=== PATIENT | male | born 1955 | race Caucasian/White ===

== ENCOUNTER → 2017-02-12 | Outpatient (CLI) | payer BC ==
[~2017-02-12] MED LIST: OXYC-57 PO
--- NOTE | 2017-02-12 12:26 | DIAGNOSTIC IMAGING REPORT ---
CT LUNG SCREENING, LOW DOSE WITH COMPUTER-AIDED DETECTION (CAD) CLINICAL HISTORY: 61 years-old Male presents for a screening examination. COMPARISON STUDY: CT abdomen 01/21/2010 CT DOSE: 78.24 mGycm TECHNIQUE: Low-dose helical CT was acquired without intravenous contrast from lung apices to bases and reconstructed at 2.5 mm every 2 mm. CAD was utilized for this study. A dose lowering technique was utilized adhering to the principles of ALARA. FINDINGS: No definite thyroid nodule or pathologic adenopathy identified. The heart is mildly enlarged with coronary arterial calcifications noted. No aortic aneurysm identified. The unopacified pulmonary arterial tree is unremarkable. Mild to moderate upper lobe predominant centrilobular and paraseptal emphysematous changes are noted without pneumothorax or pleural effusion. Mild dependent subsegmental bibasilar atelectasis. Ground glass opacity of the anterior segment right upper lobe subpleural distribution seen on image 61 series 4 suggests area of scarring. No suspicious pulmonary nodules or masses identified. No lobar airspace consolidation. Central airways are patent. No endobronchial mass lesions identified. No acute process seen within the imaged upper abdomen. Soft tissues are unremarkable. Bones appear intact. No suspicious bone lesions are identified. IMPRESSION: 1. No acute intrathoracic abnormality identified. No suspicious pulmonary nodules. 2. Mild to moderate centrilobular and paraseptal emphysema. CAD FINDINGS: Overall Lung RADS Category: 1 Lung RADS Management Recommendation: Continue annual lung cancer screening. Lung RADS Follow Up Date: 2018-02-12 The above report was generated using voice recognition software. It may contain grammatical, syntax or spelling errors. Electronically signed by: Elias Dutta M.D. 02/12/2017 12:24 PM Dictated Date/Time: 02/12/2017 12:13 PM
== END | disposition home or self-care (01) ==
LOC: C.CTS 11:24
PROVIDERS: ATTEND Family Medicine
DX: Z12.2 Encounter for screening for malignant neoplasm of respiratory organs (principal); J43.2 Centrilobular emphysema

== ENCOUNTER → 2017-04-22 | Outpatient (CLI) | payer OTHER ==
--- NOTE | 2017-04-22 08:16 | DIAGNOSTIC IMAGING REPORT ---
ABDOMEN LIMITED (US) HISTORY: 61 years-old Male HEP C hepatitis C. COMPARISON: CT abdomen 01/21/2010 TECHNIQUE: Multiple real-time sonographic images of the abdominal right upper quadrant were obtained assessing grayscale appearance and color flow FINDINGS: The pancreas is partially obscured by bowel gas and not well seen. There is an ovoid 2.2 x 0.8 cm structure noted near the pancreatic head adjacent to the portal splenic confluence suggesting normal sized periportal lymph node. Prior cholecystectomy. Common bile duct is normal, 4 mm. The liver is within normal limits without focal mass or intrahepatic biliary ductal dilation. No marginal nodularity to suggest cirrhosis. No ascites. Cyst of the superior pole right kidney measures 3.1 cm. Mild pelviectasis of the right kidney is likely physiologic and appears unchanged without betina hydronephrosis identified. IMPRESSION: 1. Prior cholecystectomy. No biliary ductal dilation. 3. Unremarkable sonographic appearance of the liver. 3. Ovoid slightly hypoechoic structure adjacent to the pancreatic head and portal splenic confluence suggest periportal lymph node. The above report was generated using voice recognition software. It may contain grammatical, syntax or spelling errors. Electronically signed by: Elias Dutta M.D. 04/22/2017 8:15 AM Dictated Date/Time: 04/22/2017 8:10 AM
== END | disposition home or self-care (01) ==
LOC: C.ULTR 07:37
PROVIDERS: ATTEND Internal Medicine Gastroenterology
DX: B19.20 Unspecified viral hepatitis C without hepatic coma (principal)

== ENCOUNTER 2017-07-11 16:49 | Emergency (ER) | payer OTHER ==
[~2017-07-11] VITALS: Ht 193 cm; Wt 98.0 kg
[2017-07-11 16:55] VITALS: TEMP 37.3; Ht 193 cm; Wt 98.0 kg
[2017-07-11] MEDS ORDERED: OXYCODONE/ACETAMINOPHEN 5-325 TAB PO STA (17:12)
--- NOTE | 2017-07-11 17:28 | EMERGENCY ROOM VISIT NOTE ---
ED Visit Note First contact with patient: 17:00 CHIEF COMPLAINT: Left knee pain, fall HISTORY OF PRESENT ILLNESS: This 61-year-old male patient presents to the emergency department, ambulatory, approximately 10 hours after sustaining an injury to the left knee when he fell while doing yard work. The patient states he slipped, landing directly on the left knee. He states he had difficulty getting up. He was able to "hobble" back to the house, and since then has taken Aleve, use ice, and elevated the extremity without significant improvement in his symptoms. The patient denies any other injuries besides their knee. The patient does report significant swelling with bruising. There is pain worse on the lateral aspect, but also of the kneecap. They rate the pain as sharp and 10/10. The patient states they are not able to walk on it. No numbness or tingling. Patient does have a history of previous knee injury with surgery approximately 12 years ago. No ankle, foot or hip pain. REVIEW OF SYSTEMS: A 6 system review of systems was completed with positives and pertinent negatives listed in the HPI. ALLERGIES: None MEDICATIONS: None PMH: None SOCIAL HISTORY: The patient lives locally with family. He denies drug, alcohol , tobacco use. PHYSICAL EXAM: Vital Signs: Reviewed Nurse's notes, vital signs stable. GENERAL : This is a 61-year-old white male, no acute distress, but appears in pain, well -developed, well-nourished. MENTAL STATUS: Alert, oriented to person place and time, and cooperative. MUSCULOSKELETAL: The left knee is moderately swollen. There is ecchymosis. There is joint effusion present. The patient is tender over the patella and of the lateral and medial aspects. There is joint line tenderness. The patella does subluxate, but the patient is experiencing a significant amount of tenderness with this movement. Range of motion is limited due to pain. Strength of the quads and hamstrings is 4/5. Darrius's is negative. Magui's and Anterior Drawer tests are negative. There is discomfort , but no laxity with varus and valgus stressing. The foot and toes are warm and well-perfused. Dorsalis pedis pulse 2+. Sensation to pain and light touch is intact. Capillary refill less than 2 seconds. RADIOLOGY: LEFT KNEE 3 VIEWS HISTORY: left knee pain, lateral>medial, fall COMPARISON: None. FINDINGS: Moderate joint effusion. Transverse lucency and irregularity at the mid patella consistent within age-indeterminate fracture. There is also mild deformity within the lateral tibial plateau which may be due to an old injury or chronic remodeling from the long-standing degenerative change. Chondrocalcinosis in multiple scattered intra-articular loose body seen within the left knee. Large marginal osteophytes seen within the left knee. Cartilage spaces are maintained. There appears to be normal, healed fracture of the distal femur. No radiopaque foreign bodies. IMPRESSION: 1. Transverse lucency within the mid patella consistent within age-indeterminate fracture. Correlation for point tenderness to assess for an acute injury. 2. Old posttraumatic changes within the distal femur. 3. Moderate joint effusion. 4. Chondrocalcinosis and degenerative changes as described above. Electronically signed by: Campbell Jean Baptiste M.D. 07/11/2017 5:37 PM Dictated Date/Time: 07/11/2017 5:[address] DOSE: 185.55 mGy.cm HISTORY: left patella fracture TECHNIQUE: Multiaxial CT images of the left knee were performed and reformatted in the sagittal and coronal plane without the use of contrast. A dose lowering technique was utilized adhering to the principles of ALARA. COMPARISON: Left knee 07/11/2017. FINDINGS: Comminuted fracture within the mid patella. This demonstrates up to 5 mm of distraction. There is an old, healed fracture within the distal femur. The bones are osteopenic. Chondrocalcinosis, degenerative changes, multiple intra-articular loose bodies are again noted. Moderate joint effusion. IMPRESSION: 1. Comminuted slightly distracted acute patellar fracture. 2. Old, healed distal femur fracture. 3. Moderate joint effusion. 4. Chondrocalcinosis. 5. 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 Electronically signed by: Campbell Jean Baptiste M.D. 07/11/2017 7:05 PM Dictated Date/Time: 07/11/2017 6:59 PM EMERGENCY DEPARTMENT COURSE: I examined the patient. The patient was given 1 dose of Percocet while here in the emergency department. X-rays of the left knee were reviewed by myself and read by radiology and reveal a probable acute fracture of the mid patella. I did consult with orthopedics, spoke with Dr. Emmanuel. He did request a CT scan, and was agreeable with placing the patient in a knee immobilizer and making him nonweightbearing. CT scan performed and reviewed by myself and radiologist as above. The patient was placed in a knee immobilizer under my direction and the position was satisfactory. The patient was instructed on the use of crutches. Patient was provided with a home pack for Percocet. Discharge instructions reviewed. The patient was discharged home in good condition. I attest that I have personally reviewed the patient's current medication list. Blood Pressure Screening: Patient was found to have a slightly elevated blood pressure due to circumstances. I do not believe that the patient requires hypertension monitoring. Etiologies such as soft tissue injury, fracture, dislocation, neurovascular compromise, compartment syndrome, as well as others were entertained. DIAGNOSIS: Left patellar fracture, fall The chart was completed utilizing [employer] Speech voice recognition software. Grammatical errors, random word insertions, pronoun errors, and incomplete sentences are an occasional consequence of this system due to software limitations, ambient noise, and hardware issues. Any formal questions or concerns about the content, text, or information contained within the body of this dictation should be directly addressed to the provider for clarification. Current/Historical Medications Scheduled PRN Oxycodone/Acetaminophen 5MG/325MG (Percocet 5MG/325MG), 1-2 TABS PO Q4 PRN for Pain Allergies Coded Allergies: No Known Allergies (Verified , 04/06/02) Uncoded Allergies: N (Allergy, Unknown, 04/06/02) NKDA' (Allergy, Unknown, 04/06/02) Vital Signs Date Time Temp Pulse Resp B/P (MAP) Pulse Ox O2 Delivery O2 Flow Rate FiO2 07/11/17 16:55 37.3 76 18 169/92 97 Room Air Medications Administered Medications (Trade) Dose Ordered Sig/Louisa Route Start Time Stop Time Status Last Admin Dose Admin Oxycodone/ Acetaminophen (Percocet 5-325mg Tab) 1 tab NOW STAT PO 07/11/17 17:12 07/11/17 17:14 DC 07/11/17 17:20 1 TAB Oxycodone/ Acetaminophen (Percocet 5/ 325MG Home Pack) 1 homepack UD STAT PO 07/11/17 18:28 07/11/17 18:30 DC 07/11/17 19:17 1 HOMEPACK Departure Information Impression Primary Impression: Left patella fracture Additional Impression: Fall Dispostion Home / Self-Care Condition GOOD Prescriptions Oxycodone/Acetaminophen 5MG/325MG (PERCOCET 5MG/325MG) Tab 1-2 TABS PO Q4 Y for Pain, #15 TAB For Initial Treatment Prov: Roxi García PA-C 07/11/17 Referrals Ramses Kerr M.D. (PCP) Andrey Emmanuel M.D. Patient Instructions ED Fx Patella, My [facility] Additional Instructions He was seen in the emergency department today for a left patellar fracture DO NOT drive, drink alcohol, operate machinery, or perform dangerous activities today. You were given medications in the ER that can affect your ability to safely function or operate a vehicle. Percocet 5/325mg: Take 1-2 pills every four hours as needed for breakthrough pain. Avoid alcohol, operating machinery or dangerous equipment, working on ladders or roofs, DRIVING, or situations where being under the influence may be dangerous. It is recommended to use an vjen-zkf-qpjuhye stool softener such as Colace, 100mg twice daily while taking this medication to avoid constipation. Ibuprofen(Motrin, Advil) may be used for fever or pain. Use 600mg every six hours as needed. Take with food. Avoid using more than 2400mg in a 24 hour period. Do not use 2400mg per day for more than three consecutive days without physician direction. Prolonged inappropriate use can lead to stomach upset or ulcers. (AND/OR) Acetaminophen(Tylenol) may be used for fever or pain. Use 650-1000mg every six hours as needed. Avoid using more than 3000mg in a 24 hour period. Ice compresses for 20 minutes at a time four times daily for 2-3 days. Use the crutches as instructed. Avoid all weightbearing until directed otherwise by orthopedics. Rest and elevate your injury. Use the knee immobilizer to keep from flexing the knee until directed otherwise by orthopedics. Return to the ER immediately for any numbness, tingling, severe pain, extreme swelling in the extremity or as needed. Call [facility], [phone], first thing tomorrow morning to arrange follow up for your injury. Follow-up with your primary care physician in 2 to 3 days for a recheck of your current condition. Problem Qualifiers Primary Impression: Left patella fracture Encounter type: initial encounter Fracture type: closed Fracture morphology : transverse Fracture alignment: nondisplaced Qualified Codes: S82.035A - Nondisplaced transverse fracture of left patella, initial encounter for closed fracture Additional Impression: Fall Encounter type: initial encounter Qualified Codes: W19.XXXA - Unspecified fall, initial encounter
--- NOTE | 2017-07-11 17:38 | DIAGNOSTIC IMAGING REPORT ---
LEFT KNEE 3 VIEWS HISTORY: left knee pain, lateral>medial, fall COMPARISON: None. FINDINGS: Moderate joint effusion. Transverse lucency and irregularity at the mid patella consistent within age-indeterminate fracture. There is also mild deformity within the lateral tibial plateau which may be due to an old injury or chronic remodeling from the long-standing degenerative change. Chondrocalcinosis in multiple scattered intra-articular loose body seen within the left knee. Large marginal osteophytes seen within the left knee. Cartilage spaces are maintained. There appears to be normal, healed fracture of the distal femur. No radiopaque foreign bodies. IMPRESSION: 1. Transverse lucency within the mid patella consistent within age-indeterminate fracture. Correlation for point tenderness to assess for an acute injury. 2. Old posttraumatic changes within the distal femur. 3. Moderate joint effusion. 4. Chondrocalcinosis and degenerative changes as described above. Electronically signed by: Campbell Jean Baptiste M.D. 07/11/2017 5:37 PM Dictated Date/Time: 07/11/2017 5:33 PM
[2017-07-11] MEDS ORDERED: OXYC-57 PO (18:27)
[2017-07-11] MEDS ORDERED: PERCOCET HOME PACK PO STA (18:28)
--- NOTE | 2017-07-11 19:07 | DIAGNOSTIC IMAGING REPORT ---
LEFT KNEE CT CT DOSE: 185.55 mGy.cm HISTORY: left patella fracture TECHNIQUE: Multiaxial CT images of the left knee were performed and reformatted in the sagittal and coronal plane without the use of contrast. A dose lowering technique was utilized adhering to the principles of ALARA. COMPARISON: Left knee 07/11/2017. FINDINGS: Comminuted fracture within the mid patella. This demonstrates up to 5 mm of distraction. There is an old, healed fracture within the distal femur. The bones are osteopenic. Chondrocalcinosis, degenerative changes, multiple intra-articular loose bodies are again noted. Moderate joint effusion. IMPRESSION: 1. Comminuted slightly distracted acute patellar fracture. 2. Old, healed distal femur fracture. 3. Moderate joint effusion. 4. Chondrocalcinosis. 5. 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 Electronically signed by: Campbell Jean Baptiste M.D. 07/11/2017 7:05 PM Dictated Date/Time: 07/11/2017 6:59 PM
[2017-07-11 19:23] VITALS: BP 171/106; PULSE 74; O2SAT 94
== END 2017-07-11 19:25 | disposition home or self-care (01) ==
LOC: C.EDB 16:50 → C.EDD 19:25
DX: S82.035A Nondisplaced transverse fracture of left patella, initial encounter for closed fracture (principal); W01.0XXA Fall on same level from slipping, tripping and stumbling without subsequent striking against object, initial encounter; Y93.H9 Activity, other involving exterior property and land maintenance, building and construction

== ENCOUNTER 2021-12-03 06:32 | Observation (INO) ==
--- NOTE | 2021-11-10 14:56 | PAT Medication Instructions ---
Medication Instructions Date of Service November 10, 2021 Home Medications Uric Acid Support 1 dose PO QAM glucosamine-chondroitin 500 mg-400 mg capsule 1 cap PO QAM ticdsqbkpchy-jeiumkci-yxpeme tablet 1 tab PO QAM turmeric 400 mg capsule 400 mg PO QAM STOP taking 2 weeks before surgery Uric Acid Support 1 dose PO QAM glucosamine-chondroitin 500 mg-400 mg capsule 1 cap PO QAM ghzpzlklqteh-mbmekkmv-kjcsfc tablet 1 tab PO QAM turmeric 400 mg capsule 400 mg PO QAM Other Notes NOTHING TO EAT OR DRINK AFTER MIDNIGHT. If you have any questions please call us at [phone] or [phone] or [phone] or [phone]
--- NOTE | 2021-11-17 11:35 | Anesthesiology Consultation ---
Date of Service November 17, 2021 Assessment & Plan (1) Encounter for pre-operative examination: Outpatient joint assessment: Patient is currently scheduled for inpatient pathway. If re-evaluated pending system levels during current pandemic/surgeon requests outpatient pathway, patient is acceptable candidate for outpatient joint program from anesthesia standpoint pending perioperative course and surgeon's office assessment of pt motivation/support/completion of same day joint program preop requirements. Chart Review Chart Review: Acceptable Risk for Surgery and Patient seen in Pre Admission Testing Teaching & Discussion Pre-Anesthesia Teaching/Discussion Notes: Instructed NPO after midnight before surgery, except medications with 15 cc of water. Medication instructions provided according to the PAT guidelines. History Surgery Operation Date: 12/03/21 07:00 Proposed Procedures p Left Total Knee Arthroplasty - Patrick Bolanos MD Height/Weight Height: 6 ft 4 in Weight: 100.1 kg Allergies Allergy/AdvReac Type Severity Reaction Status Date / Time No Known Allergies Allergy Verified 11/05/21 13:48 Medications Home Medications Medication Instructions Recorded Confirmed Last Taken Uric Acid Support 1 dose PO QAM 11/05/21 11/05/21 Unknown glucosamine-chondroitin 500 mg-400 1 cap PO QAM 11/05/21 11/05/21 Unknown mg capsule xvcrgzobhlux-qrfbirbz-smoobm tablet 1 tab PO QAM 11/05/21 11/05/21 Unknown turmeric 400 mg capsule 400 mg PO QAM 11/05/21 11/05/21 Unknown Past Medical History Medical History Hx of gout Kidney stones passed on own Patient denies h/o stroke, seizures, heart attack, heart failure, DM, HTN, blood clots or blood transfusions. Exercise / Class Metabolic Activity II 4-5 Yardwork/Stairs/Walk up hill (denies CP or SOB with 1 FOS) Past Surgical History Surgical History History of cholecystectomy History of colonoscopy History of tonsillectomy Hx of left knee surgery [place] teeth extracted Past Anesthesia History No Hx of Anesthesia Complications and No Family Hx of Anesthesia Complications History of PONV No Hx of PONV and No Hx of Motion Sickness Social History Smoking Status: Current every day smoker tobacco type: cigarettes Smoking cigarettes per day: 1/2 pack per day-advised Do You Dip or Chew Tobacco: No Hx Alcohol Use: Yes Alcohol type: hard liquor alcohol intake frequency: 0-2 drinks per day Hx Substance Use: Yes substance use type: marijuana Substance Use Type Other:: uses daily > grows his own-advised Review of Systems Snoring, denies witnessed apneas. Patient denies chest pain, shortness of breath, dyspnea on exertion, reflux, fever, chills, cough, wheezing, or palpitations. Physical Exam Vital Signs Vitals BP 118/80 P 66 TEMP 98.6 SP02 96% on RA RESP 17 Physical Full cervical extension range of motion without pain TMD 3.5 finger breadths Mallampati Score 2 Dentition: intact, denies chipped or loose teeth, caps/crowns, implants or bridges Lungs: normal respiratory effort. Clear throughout to auscultation, no adventitious breath sounds Cardiac: regular rate and rhythm, no murmurs noted Carotid arteries: negative bruit bilat Lab Results Anesthesia Preop Results Results Anesthesia Widget: WBC 7.59 K/ul (4.8-10.8) 11/17/21 Hgb 16.1 g/dl (14.0-18.0) 11/17/21 Hct 46.4 % (40.1-51.0) 11/17/21 Plt 125 K/uL (130-400) L 11/17/21 Na 137 mmol/L (136-145) 11/17/21 K 4.3 mmol/L (3.5-5.1) 11/17/21 Cl 104 mmol/L (98-107) 11/17/21 CO2 27 mmol/L (21-32) 11/17/21 BUN 10 mg/dl (6-23) 11/17/21 Creat 0.88 mg/dl (0.6-1.4) 11/17/21 Glucose Level 87 mg/dl (70-99(Fasting)) 11/17/21 PT 11.0 Seconds (9.0-12.0) 11/17/21 PTT 32.2 Seconds (21.0-31.0) H 11/17/21 INR 1.0 (0.9-1.1) 11/17/21 Urine Color Yellow 11/17/21 Urine Appearance Clear (Clear) 11/17/21 Urine pH 6.5 (4.5-7.5) 11/17/21 Urine Specific [place] 1.004 (1.000-1.030) 11/17/21 Urine Protein Negative (Negative) 11/17/21 Urine Glucose (UA) Negative (Negative) 11/17/21 Urine Ketones Negative (Negative) 11/17/21 Urine Blood Negative (Negative) 11/17/21 Urine Nitrite Negative (Negative) 11/17/21 Urine Bilirubin Negative (Negative) 11/17/21 Urine Urobilinogen Negative (Negative) 11/17/21 Urine Leukocyte Esterase Negative (Negative) 11/17/21 Blood Type O Positive 11/17/21 Antibody Screen NEGATIVE 11/17/21 Testing Electrocardiogram Date: 11/17/21 NSR, rate 60 bpm Chest X-Ray Date: 11/17/21 Lung volumes are normal. Lungs are clear. There is no pneumothorax or pleural effusion. Cardiac size is normal. Mediastinal contours are normal. There is no evidence for pulmonary edema. Interstitial thickening is likely chronic. There are several old left rib fractures. Emphysema is better depicted on prior chest CT. A moderate compression fracture within the thoracic spine is noted. Exact level is difficult to determine. This is probably chronic. IMPRESSION: 1. No acute cardiopulmonary findings. 2. Emphysema. COVID-19 Risk Screen Screening Information COVID-19 Screen Date: 11/17/21 Exposure 21 Days Family/Household +COVID Last 21 Days: No Exposure 10 Days Any COVID Exposure Last 10 Days: No Symptoms Last 10 Days Experienced COVID Sx Last 10 Days: No + COVID 0-90 Days COVID + in Last 0-90 Days: No
[~2021-12-03 06:32] MED LIST changes: +BUPIVACAINE 0.25% 30 ML VIAL ONE; +BUPIVACAINE 0.5 % 5 MG/1 ML MPF 30ML VIAL ONE; +LR 500ML BOLUS, THEN 15ML/HR IV SCH; +LR 60ML/HR IV SCH; -OXYC-57 PO; +ROPIVACAINE 0.5% HCL/PF 150 MG, BUPIVACAINE 0.75% MPF 20 ML, EPINEPHrine 0.15 MG, Ketor... INFIL SCH; +TRANEXAMIC ACID 1,000 MG **IV Pre-op IV SCH; +ceFAZolin 2000MG 2,000 MG/15 ML SYR IV SCH
--- NOTE | 2021-12-03 06:45 | History & Physical Bridge Note ---
Date of Service December 03, 2021 History & Physical Bridge Note I have examined the patient, reviewed the History & Physical and in the interval since the performance of the History & Physical I have noted the following changes of clinical significance: no changes noted
[2021-12-03] MEDS ORDERED: MIDAZOLAM HCL 1 MG/ML 2ML VIAL ONE (07:05)
[2021-12-03] MEDS ORDERED: ONDANSETRON INJ 2 MG/ML 2 ML VIAL ONE (07:19)
[2021-12-03] MEDS ORDERED: KETAMINE 50 MG/5 ML SYRINGE ONE (07:19)
[2021-12-03] MEDS ORDERED: GLYCOPYRROLATE 0.2 MG/ML VIAL ONE (07:19)
[2021-12-03] MEDS ORDERED: LIDOCAINE 2% MPF LOCAL 5 ML VIAL INFIL ONE (07:19)
[2021-12-03] MEDS ORDERED: PROPOFOL IV EMULSION 10 MG/ML 20 ML VIAL IV ONE ×3 (07:19→09:30)
[2021-12-03] MEDS ORDERED: fentaNYL citrate 100 MCG/2 ML VIAL IV PRN (08:00)
[2021-12-03] MEDS ORDERED: ePHEDrine sulfate 50 MG/ML AMP IV PRN (08:00)
[2021-12-03] MEDS ORDERED: ONDANSETRON INJ 2 MG/ML 2 ML VIAL IV PRN ×2 (08:00→12:35)
[2021-12-03] MEDS ORDERED: ATROPINE SULFATE 0.1 MG/ML 10ML SYR IV PRN (08:00)
[2021-12-03] MEDS ORDERED: ORTHO JOINT ANESTHETIC ONE (08:34)
--- NOTE | 2021-12-03 09:32 | Discharge Summary (DS) ---
DATE OF ADMISSION: 12/03/2021. DATE OF POTENTIAL DISCHARGE: 12/04/2021. CHIEF COMPLAINT: Left knee pain. HISTORY OF PRESENT ILLNESS: The patient has extensive osteoarthritis with valgus deformity of his le ft knee, status post distal femoral varus osteotomy 18 years ago. At this point in time, he has intr actable pain. X-rays reveal end-stage disease. PAST MEDICAL HISTORY: Remarkable for new onset hepatitis C diagnosis being evaluated. No contraindi cation to surgery, history of tobacco use. CURRENT MEDICATIONS: None. ALLERGIES: None. PAST SURGICAL HISTORY: Remarkable for left femur surgery 18 years ago. SOCIAL HISTORY: Reveals that he does smoke a pack of cigarettes per day, drinks about 6 drinks per [facility] [place] per admission. Denies any other drug use. FAMILY HISTORY: Reveals no significant. REVIEW OF SYSTEMS: Remarkable for dry cough, fevers, chills, nausea, vomiting or any symptoms being denied. No recent hospitalizations, no chest pain, shortness of breath, fever, chills, nausea, vomit ing or headache. HOSPITAL COURSE: The patient underwent elective left total knee replacement for severe valgus deform ity, end-stage disease. To date everything is satisfactory. He will be discharged tomorrow if he schmitz s well overnight. Discharge medications will include blood thinner. He states he also will continue his workup and treatment for his hepatitis C. Job ID: [id number]
[2021-12-03] MEDS ORDERED: PHENYLEPHRINE HCL 10 MG/ML VIAL ONE (10:38)
--- NOTE | 2021-12-03 11:03 | Operative Report ---
Post Operative Report Pre & Post Diagnosis Operation Date: 12/03/21 08:50 Pre-Op Diagnosis: Left Knee End-Stage Osteoarthritis Post-Op Diagnosis: Left Knee End-Stage Osteoarthritis I identified the patient and participated in the time-out.: Yes Procedure Operation Date: 12/03/21 08:50 Actual Procedures p Left Total Knee Arthroplasty(Left) - Patrick Bolanos MD Surgeon DINO Bolanos MD Technical Sales Representatives Ten/Masha/Bryon BARBA Estimated Blood Loss 50 Findings Consistent with Post-Op Diagnosis see operative report Specimens see operative report Drains none Complications none Disposition Accompanied Patient To Recovery: Yes Indications This 65-year-old male presented to the office with complaints of persisting left knee pain. He had tried conservative care measures without improvement. He elected to proceed with surgical intervention after being educated about potential risks and outcomes. Preoperative imaging was obtained. Description of Procedure Patient was administered a spinal anesthetic and then taken to the operating room where he was given sedation. He was prepped and draped in the usual sterile fashion. Please see Dr. Bolanos's operative report for specifics of the procedure. I was present for the entire case from initial patient positioning through final wound closure. Assistance was provided in tissue retraction, hemostasis, trial implant placement, final implant placement, and final wound closure. Patient was taken to the recovery room in satisfactory condition. I attest to the content of the Intraoperative Record and any orders documented therein. Any exceptions are noted below.
--- NOTE | 2021-12-03 11:46 | Progress Notes ---
DATE OF NOTE: 12/03/2021 SUBJECTIVE: At this point in time, he is doing well. Denies chest pain, shortness of breath, fever, chills, nausea, vomiting or headache. OBJECTIVE: Vital signs are stable. He is afebrile. Neurovascular check limited by spinal. He is a ble to roll his legs. At this point, wound dressing clean, dry and intact. Postop x-rays look excellent. 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 X-rays look good. We will continue with care pathway. Potential discharge tomorrow if he does well overnight. Job ID: [id number]
--- NOTE | 2021-12-03 12:00 | Operative Report (OR) ---
DATE OF PROCEDURE: 12/03/2021. SURGEON: Patrick Bolanos MD. DELICATESSEN CLERK: Dr. Caal. SECOND DELICATESSEN CLERK: Dr. Flanagan. THIRD DELICATESSEN CLERK: Dain Slater PA-C. PREOPERATIVE DIAGNOSIS: Osteoarthritis, left knee with severe valgus deformity and arthrofibrosis. POSTOPERATIVE DIAGNOSIS: Osteoarthritis, left knee with severe valgus deformity and arthrofibrosis. OPERATION PERFORMED: Cemented left total knee replacement, extensive soft tissue release. SUMMARY OF IMPLANTS: Size 5 left femur, rotating platform tibial tray, size 5 all posterior cruciate substituting, size 41 patella, 5 x 10 mm insert posterior cruciate substituting, 2 bags of Palacos G cement, all J and J rotating platform and implants. PATHOLOGY: Pending on bone. DVT prophylaxis per protocol. PERIOPERATIVE SITUATION: Medically cleared male with intractable knee pain, has severe disease, prev ious osteotomy, 18 years of biologic life in his knee, now needs a total knee replacement. He has se kendrick arthrofibrosis and severe disease. DESCRIPTION OF PROCEDURE: The patient was appropriately identified, site verified, consent verified. Antibiotics were confirmed as being given. The left lower extremity was prepped and draped in usua l routine fashion. Tourniquet was inflated to 300 mmHg for a total of 78 minutes. Midline exposure was utilized. He had an old incision elsewhere in the knee. He had extensive scarring throughout th e entire soft tissue envelope. This was all released down to the extensor mechanism. The capsule wa s then opened. There was extensive disease in the joint, very thick hypertrophic fibrotic synovium. This was all excised. The patella was extremely tight, needed to have a tedious dissection to be able to aure it and displ reena it. Osteophytes were then resected around the margin of femur. The complete notch was solid wit h bone. This was carved out with an osteotome. The remaining PCL was then released. The tibia coul d be partially subluxated but not completely and the meniscal remnants that could be seen were excise d. Extensive dissection was carried around the lateral aspect of the knee to be able to see the tibi a. Once this was done, the distal femur was entered and resected 14 mm. The tibia was then flexed, retracted appropriately and then resected 4 mm off the high side, the exte nsion gap was excellent. Some soft tissue release was required around the femur to see the posterola teral corner. Once this was done, the sizing block was placed. He was anywhere between a 4 and 6, s o he was measured 6 and cut 5. There was some minimal notching anteriorly. Once all the cuts were m micheal anterior, posterior, condylar and chamfer cuts, bone fragments were removed. The flexion gap was then checked. It was a little bit tight laterally and some more capsule release and popliteus relea se was performed and then it made it excellent. The box cut was then made, and the trial fit well. The tibia was then subluxated and appropriately broached and reamed for a size 5 platform tray with r otating platform. Once this was done, the 10 mm spacer was inserted and the knee had full extension, full flexion, excellent stability and full extension, mid range flexion and full flexion. The patell a tracked well. The patella was resected leaving about 16 mm of bone and the 41 seating holes made, and the trial tracked well. Some extra bone was then removed around the patella. The Orthomix was t hen injected all about the knee. The wound was irrigated with Betadine Pulsavac and then cemented into position - the tibia, femur, an d patella in that order. At 12 minutes, the tourniquet was deflated. At 14 minutes, the knee was fle xed. No major cement removal was required. The knee was then irrigated after the trial implant was removed for the spacer. No cement needed to be removed and then Betadine placed after saline irrigat ion and then the permanent spacer seated. The knee reduced and closed at 30-40 degrees of flexion wi th #2 Vicryl, 2-0 Vicryl and stainless steel clips. Appropriate dressing applied. The patient was t ransferred to recovery room in satisfactory condition, having tolerated the procedure well. Job ID: [id number]
[2021-12-03] MEDS ORDERED: bisacodyL 10 MG SUPP PR PRN (12:35)
[2021-12-03] MEDS ORDERED: TAMSULOSIN HCL 0.4 MG CAP PO PRN (12:35)
[2021-12-03] MEDS ORDERED: SODIUM CHLORIDE 0.9% 1000ML 1,000 ML IV SCH (12:35)
[2021-12-03] MEDS ORDERED: ALUMINUM/MAGNESIUM SUSP 30 ML UDC PO PRN (12:35)
[2021-12-03] MEDS ORDERED: diphenhydrAMINE 50 MG/ML VIAL IV PRN (12:35)
[2021-12-03] MEDS ORDERED: MAGNESIUM HYDROXIDE SUSP 30 ML UDC PO PRN (12:35)
[2021-12-03] MEDS ORDERED: VANCOMYCIN CONSULT ACTIVE PRN (12:35)
[2021-12-03] MEDS ORDERED: HYDROmorphone INJ 0.5 MG/0.5 ML SYR IV PRN (12:35)
[2021-12-03] MEDS ORDERED: METOCLOPRAMIDE HCL INJ 5 MG/ML 2 ML VIAL IV PRN (12:35)
[2021-12-03] MEDS ORDERED: NALOXONE HCL 0.4 MG/1 ML VIAL/CARP IV PRN (12:35)
[2021-12-03] MEDS ORDERED: VANCOMYCIN HCL 1,500 MG in SODIUM CHLORIDE 0.9% 500 ML IV ONE (14:00)
--- NOTE | 2021-12-03 14:31 | XRay Report ---
XR knee LT 1 or 2V routine CLINICAL HISTORY: Postoperative evaluation. COMPARISON: Left knee radiographs September 02, 2021. FINDINGS: Alignment of the total left knee arthroplasty is anatomic. There is no periprosthetic frac ture or unexpected radiopaque foreign body. There are skin elana. Chronic deformity of the distal l eft femur is incidentally noted. IMPRESSION: Expected findings following total left knee arthroplasty. ACT 112: Negative or not required by law. Electronically signed by: Jayjay Harris M.D. 12/03/2021 2:30 PM
--- NOTE | 2021-12-03 14:34 | Anesthesiology Progress Note ---
Date of Service December 03, 2021 Anesthesia Post Procedure Vital Signs Vital Signs: Temp Pulse Pulse Resp BP Pulse Ox O2 Del Method 12/03/21 14:26 37.1 C 68 18 128/82 95 Nasal Cannula 12/03/21 13:50 63 18 126/71 96 Nasal Cannula 12/03/21 12:50 70 19 119/77 97 Nasal Cannula 12/03/21 12:20 56 L 16 113/77 97 Nasal Cannula 12/03/21 11:50 37.0 C 53 L 23 114/76 98 Nasal Cannula 12/03/21 11:40 57 L 17 119/78 98 Nasal Cannula 12/03/21 11:40 54 L 20 113/76 97 Nasal Cannula 12/03/21 11:30 57 L 19 118/78 99 Nasal Cannula 12/03/21 11:20 60 22 116/78 95 Nasal Cannula 12/03/21 11:10 63 19 116/76 95 Nasal Cannula 12/03/21 11:03 37.1 C 79 20 108/75 94 Nasal Cannula 12/03/21 07:07 36.9 C 83 18 161/103 H 94 Room Air O2 Flow Rate 12/03/21 14:26 2 12/03/21 13:50 2 12/03/21 12:50 2 12/03/21 12:20 2 12/03/21 11:50 2 12/03/21 11:40 2 12/03/21 11:40 2 12/03/21 11:30 2 12/03/21 11:20 2 12/03/21 11:10 2 12/03/21 11:03 2 12/03/21 07:07 Pain Intensity Left Knee: Pain Intensity: 6 Transfer of Care Handoff Completed per policy Notes Mental Status: alert / awake / arousable and participated in evaluation Patient Amnestic to Procedure: Yes Nausea / Vomiting: adequately controlled Pain: adequately controlled Airway Patency, RR, SpO2: stable & adequate BP & HR: stable & adequate Hydration State: stable & adequate Neuraxial Anesthesia: was administered and sensory block is resolving Anesthetic Complications: no major complications apparent and Pt Satisfied with anesthetic care
[2021-12-03] MEDS: KETOROLAC TROMETHAMINE 15 MG/ML VIAL IV SCH ×2 (15:27→19:54)
[2021-12-03] MEDS ORDERED: Nursing to Pharmacy Communication SCH (15:45)
[2021-12-03] MEDS: NICOTINE 14 MG/24 HR PATCH TD SCH (15:49)
[2021-12-03] MEDS ORDERED: WARFARIN SOD 5 MG TAB PO SCH (16:00)
[2021-12-03] MEDS: ORTHO WARFARIN NOMOGRAM SCH (16:18)
[2021-12-03] MEDS: oxyCODONE HCL IR 5 MG TAB (IMMEDIATE RELEASE) PO PRN ×2 (16:32→22:13)
[2021-12-03] MEDS: FERROUS GLUCONATE 324 MG TAB PO SCH (16:35)
[2021-12-03] MEDS: ASCORBIC ACID 500 MG TAB PO SCH (16:35)
[2021-12-03] MEDS: ceFAZolin 2000MG 2,000 MG/15 ML SYR IV SCH (17:09)
[2021-12-03] MEDS ORDERED: TRANEXAMIC ACID / 0.7% NACL 1,000 MG/100 ML BAG IV SCH (17:15)
[2021-12-03] MEDS: DOCUSATE SODIUM 100 MG CAP PO SCH (19:54)
[2021-12-03] MEDS ORDERED: SENNA 8.6 MG TAB PO SCH (21:00)
[2021-12-04] MEDS: ceFAZolin 2000MG 2,000 MG/15 ML SYR IV SCH (01:38)
[2021-12-04] MEDS: KETOROLAC TROMETHAMINE 15 MG/ML VIAL IV SCH ×2 (02:11→08:46)
[2021-12-04] MEDS: oxyCODONE HCL IR 5 MG TAB (IMMEDIATE RELEASE) PO PRN (06:08)
[2021-12-04] MEDS ORDERED: dexAMETHasone 10 MG in SYRINGE 0 ML IV SCH (08:00)
--- NOTE | 2021-12-04 08:12 | Progress Notes ---
SUBJECTIVE: Postop check, left total knee replacement, doing well. Denies chest pain, shortness of breath, fever, chills, nausea, vomiting, or headache. OBJECTIVE: Vital signs are stable. He is afebrile. Neurovascular check femoral sciatic nerve is normal. Wound dressing clean, dry and intact. Calves a re nontender. ASSESSMENT AND PLAN: Doing well. Discharged home today after PT/OT and dressing change. Laboratory work pending. Follow up in 2 weeks. Keep INR 1.8 to 2.2. Job ID: [id number]
--- NOTE | 2021-12-04 08:42 | Orthopedic Progress Note ---
Date of Service December 04, 2021 Assessment & Plan (1) Status post total left knee replacement using cement: Plan: PT/OT Weightbearing as tolerated with walker assistance and immobilizer use for the first 48 hours postoperatively Ice with easy wrap Keep new dressing in place Pain control with p.o. medication DVT prophylaxis with Coumadin and CHRISTY stockings Goal INR is 1.8-2.2 Patient will need biweekly INR checks for 6 weeks postoperatively Plan is to discharge home today with home physical therapy for the first 2 weeks postoperatively Follow-up at [facility] orthopedics as previously scheduled With questions contact our clinic at [phone] Admission and Anticipated Discharge Date Admission Date: December 03, 2021 Subjective This 65-year-old male is day 1 status post left total knee arthroplasty. He states that he is doing very well. He states his pain is well controlled with the p.o. pain medication. He states that he has been able to get up on his own to use the restroom with the assistance of a walker. Patient states the knee feels much better now than it did before surgery. Patient denies chest pain, shortness of breath, fever, chills, sweats, lethargy, numbness or tingling in his left lower extremity. He also denies nausea, vomiting or difficulty voiding. Review of Systems Review of Systems: All systems reviewed & are unremarkable except as noted in Subjective Physical Exam Physical Exam: Left knee: Active range of motion is from 0 to 70 degrees. Patient is able to perform active straight leg raise test. He is able to actively dorsi and plantarflex foot. Quad strength is 3+ out of 5. Patient is able to detect light sensation to touch circumferentially around the incision site. Elana are intact with no palpable fluctuance or drainage. Patient's calf soft and supple and nontender to palpation. He is neurovascularly intact in the left lower extremity. New dressing was applied consisting of sterile 4 x 4's, ABDs and Kerlix. The dressing was kept in place by application of a CHRISTY stocking. Results & Data ([facility]) Vital Signs (Past 12 Hours) Vital Signs Temp Pulse Resp BP Pulse Ox O2 Del Method 12/04/21 08:02 37.6 C H 78 16 101/66 91 Room Air 12/04/21 07:15 Room Air 12/04/21 03:58 37.3 C 78 18 102/69 92 Room Air 12/03/21 23:10 37.6 C H 91 H 18 134/79 94 Room Air Diagnostic Findings Laboratory Results SARS-CoV-2, RNA, NAAT NEGATIVE (NEGATIVE) 12/03/21 Unknown Impressions Knee X-Ray 12/03/21 10:52 XR knee LT 1 or 2V routine CLINICAL HISTORY: Postoperative evaluation. COMPARISON: Left knee radiographs September 02, 2021. FINDINGS: Alignment of the total left knee arthroplasty is anatomic. There is no periprosthetic fracture or unexpected radiopaque foreign body. There are skin elana. Chronic deformity of the distal left femur is incidentally noted. IMPRESSION: Expected findings following total left knee arthroplasty. ACT 112: Negative or not required by law. Electronically signed by: Jayjay Harris M.D. 12/03/2021 2:30 PM
[2021-12-04] MEDS: ASCORBIC ACID 500 MG TAB PO SCH (08:45)
[2021-12-04] MEDS: NICOTINE 14 MG/24 HR PATCH TD SCH (08:45)
[2021-12-04] MEDS: FERROUS GLUCONATE 324 MG TAB PO SCH (08:46)
[2021-12-04] MEDS: DOCUSATE SODIUM 100 MG CAP PO SCH (08:46)
[2021-12-04] MEDS ORDERED: MULTIVITAMIN TAB PO SCH (09:00)
[2021-12-04 09:03] LABS: INR 1.1 (0.9-1.1); Prothrombin Time 11.4 Seconds (9.0-12.0)
[2021-12-04 09:06] LABS: Hematocrit (blood only) 36.3 % (40.1-51.0); Hemoglobin 12.5 g/dl (14.0-18.0); Mean Corpuscular Hemoglobin 34.6 pg (25.0-34.0); Mean Corpuscular Hgb Conc 34.4 g/dL (32.0-36.0); Mean Corpuscular Volume 100.6 fL (80.0-100.0); Mean Platelet Volume 11.3 fL (9.4-12.4); Platelet Count 124 K/uL (130-400); RDW Coefficient of Variation 11.8 % (11.5-14.5); RDW Standard Deviation 43.1 fL (36.4-46.3); Red Blood Count 3.61 M/uL (4.63-6.08); White Blood Count 17.93 K/ul (4.8-10.8)
[2021-12-04] MEDS ORDERED: WARFARIN SOD 5 MG TAB PO STA (09:17)
[2021-12-04 09:18] LABS: BUN Creatinine Ratio 14.7 (10-20); Calcium 8.9 mg/dl (8.5-10.1); Creatinine Clr Calc Pharmacy 85.1 ml/min; Est GFR (African American) 89.6 ml/min; Est GFR (Non-African American) 77.3 ml/min; Potassium 4.7 mmol/L (3.5-5.1)
[2021-12-04] MEDS: ORTHO WARFARIN NOMOGRAM SCH (09:54)
== END 2021-12-04 12:08 | disposition home health service (06) ==
LOC: PACUINP 06:32 → ASU 06:32 → 3W 14:26